=== PATIENT | female | born 1955 | race Caucasian/White ===

== ENCOUNTER → 2023-12-18 12:54 | Outpatient (REF) | payer MEDICARE, SELFPAY | LOC: WDC 12:54 | PROVIDERS: ATTENDING PHYSICIAN Family Medicine | DX: Z12.31 Encounter for screening mammogram for malignant neoplasm of breast (principal) | CPT/HCPCS: 77063; 77067 ==

== ENCOUNTER → 2024-12-22 12:54 | Outpatient (REF) | payer MEDICARE, SELFPAY | LOC: WDC 12:54 | PROVIDERS: ATTENDING PHYSICIAN Family Medicine | DX: Z12.31 Encounter for screening mammogram for malignant neoplasm of breast (principal) | CPT/HCPCS: 77063; 77067 ==